=== PATIENT | male | born 1960 | race Caucasian/White ===

== ENCOUNTER 2023-06-02 05:46 | Day surgery (SDC) | payer OTHER ==
[2023-05-29 14:10] VITALS: BMI 27.3
[2023-06-02 09:51] VITALS: TEMP 98
[2023-06-02 10:28] VITALS: BP 109/60; PULSE 68; RESP 20
== END 2023-06-02 10:29 | disposition home or self-care (01) ==
LOC: JASU-ENDO 05:46
PROVIDERS: ATTEND Internal Medicine Gastroenterology
PROC: 0DBN8ZX Excision of Sigmoid Colon, Via Natural or Artificial Opening Endoscopic, Diagnostic (ICD-10-PCS; principal; 2023-06-02 09:00)
DX: Z12.11 Encounter for screening for malignant neoplasm of colon (principal); K63.5 Polyp of colon; K64.8 Other hemorrhoids
CPT/HCPCS: 88305-TC